=== PATIENT | male | born 1960 | race Caucasian/White ===

== ENCOUNTER 2020-07-23 10:27 | Outpatient (CLI) | payer OTHER, SELFPAY ==
--- NOTE | 2020-07-23 11:00 | NEURO_ITS ---
Impression: # Complains of numbness of hands. # Evolving Carpal Tunnel Syndrome. # No ulnar neuropathy. # Normal needle/EMG exam. Nerve Conduction Studies Anti Sensory Summary Table Stim Site NR Peak (ms) P-T Amp (?V) Site1 Site2 Delta-P (ms) Dist (cm) Stoney (m/s) Left Median Anti Sensory (2-3nd Digit) Wrist 3.0 52.1 Wrist 2-3nd Digit 3.0 14.0 47 Wrist 2.9 31.7 Wrist 2-3nd Digit 3.0 14.0 47 Right Median Anti Sensory (2-3nd Digit) Wrist 2.9 45.9 Wrist 2-3nd Digit 2.9 14.0 48 Wrist 3.0 40.2 Wrist 2-3nd Digit 2.9 14.0 48 Left Radial Anti Sensory (Base 1st Digit) Wrist 1.7 10.5 Wrist Base 1st Digit 1.7 0.0 Right Radial Anti Sensory (Base 1st Digit) Wrist 2.5 15.8 Wrist Base 1st Digit 2.5 0.0 Left Ulnar Anti Sensory (5th Digit) Wrist 2.7 59.3 Wrist 5th Digit 2.7 14.0 52 Right Ulnar Anti Sensory (5th Digit) Wrist 2.4 44.3 Wrist 5th Digit 2.4 14.0 58 Motor Summary Table Stim Site NR Onset (ms) O-P Amp (mV) Site1 Site2 Delta-0 (ms) Dist (cm) Stoney (m/s) Left Median Motor (Abd Poll Brev) Wrist 3.8 3.6 Elbow Wrist 5.4 31.0 57 Elbow 9.2 4.4 Right Median Motor (Abd Poll Brev) Wrist 3.6 3.9 Elbow Wrist 5.2 30.0 58 Elbow 8.8 4.6 Left Ulnar Motor (Abd Dig Minimi) Wrist 2.7 6.7 A Elbow Wrist 5.3 32.0 60 A Elbow 8.0 5.0 Right Ulnar Motor (Abd Dig Minimi) Wrist 2.7 7.2 A Elbow Wrist 5.5 31.0 56 A Elbow 8.2 5.6 F Wave Studies NR F-Lat (ms) L-R F-Lat (ms) Left Median (Mrkrs) (Abd Poll Brev) 29.49 0.06 Right Median (Mrkrs) (Abd Poll Brev) 29.55 0.06 Left Ulnar (Mrkrs) (Abd Dig Min) 30.04 0.27 Right Ulnar (Mrkrs) (Abd Dig Min) 30.31 0.27 EMG Side Muscle Nerve Root Ins Act Fibs Amp Dur Recrt Comment Right 1stDorInt Ulnar C8-T1 Nml Nml Nml Nml Nml Right Ext Indicis Radial (Post Int) C7-8 Nml Nml Nml Nml Nml Right Ext Digitorum Radial (Post Int) C7-8 Nml Nml Nml Nml Nml Right BrachioRad Radial C5-6 Nml Nml Nml Nml Nml Right PronatorTeres Median C6-7 Nml Nml Nml Nml Nml Right Abd Poll Brev Median C8-T1 Nml Nml Nml Nml Nml Left 1stDorInt Ulnar C8-T1 Nml Nml Nml Nml Nml Left Ext Indicis Radial (Post Int) C7-8 Nml Nml Nml Nml Nml Left Ext Digitorum Radial (Post Int) C7-8 Nml Nml Nml Nml Nml Left BrachioRad Radial C5-6 Nml Nml Nml Nml Nml Left PronatorTeres Median C6-7 Nml Nml Nml Nml Nml Left Abd Poll Brev Median C8-T1 Nml Nml Nml Nml Nml MTDD
== END 2020-07-23 10:28 | disposition home or self-care (01) ==
LOC: ANHNEURO 10:31
PROVIDERS: PCP Internal Medicine; Visit Provider Internal Medicine
DX: G56.03 Carpal tunnel syndrome, bilateral upper limbs (principal)
CPT/HCPCS: 95886; 95911

== ENCOUNTER 2022-11-11 14:20 | Emergency (ER) | payer OTHER, SELFPAY ==
--- NOTE | ~2022-11-11 | CT_ITS ---
EXAMINATION: CT brain wo con INDICATION: Headache COMPARISON: None TECHNIQUE: Standard unenhanced head CT. The dose-length product (DLP) was 681.00 mGy-cm. The mA was a djusted according to patient size. Iterative reconstruction technique was employed. FINDINGS: No acute intraparenchymal hemorrhage. No evidence of mass lesion. No evidence of acute infa rction. There is mild periventricular and subcortical hypodensity probably related to small vessel is chemic disease. There is mild prominence of the sulci and ventricles related to cerebral atrophy. Int racranial calcified cerebral atherosclerosis is noted. No extra-axial collections. No mass effect or midline shift. The orbits and soft tissues are unremarkable. A right mastoid effusion is noted. IMPRESSION: 1. No acute intracranial abnormality. 2. Age related findings. Reviewed, dictated and finalized at location F.
--- NOTE | ~2022-11-11 | XR_ITS ---
XR chest 2V DATE: 11/11/2022 14:56 INDICATION: Shortness of breath for 2 days. Weakness. TECHNIQUE: PA and lateral views COMPARISON: None FINDINGS: Normal heart size. Left-sided dual-lead pacemaker with leads overlying right atrium and rig ht ventricle. No hilar or mediastinal enlargement. No pulmonary infiltrate or consolidation, pleural effusion or pulmonary vascular congestion or pneumothorax. Diffuse idiopathic skeletal hyperostosis of the thoracic spine and prominent degenerative disc diseas e in the lower cervical spine. IMPRESSION: No active cardiopulmonary disease Reviewed, dictated and finalized at location A.
[2022-11-11 14:30] VITALS: BP 132/68; PULSE 73; RESP 16; TEMP 36.3; O2SAT 100
[2022-11-11 14:53] LABS: Basophils Percent Auto 0.4 % (0.2-1.2); Eosinophils Absolute Auto 0.1 K/mm3 (0-0.3); Eosinophils Percent Auto 1.2 % (0-4.4); Hematocrit 38.9 % (42.0-52.0); Hemoglobin 12.7 g/dL (14.0-18.0); Immature Granulocyte Absolute 0.02 K/mm3 (0.00-0.031); Immature Granulocyte Percent A 0.4 % (0-0.5); Lymphocytes Absolute Auto 0.94 K/mm3 (0.9-3.2); Lymphocytes Percent Auto 19.3 % (18.3-44.2); Mean Corpuscular HGB Conc 32.6 g/dl (32-36); Mean Corpuscular Volume 94.9 fl (80-100); Mean Platelet Volume 9.7 fl (7.4-10.4); Monocytes Absolute Auto 0.3 K/mm3 (0.1-0.6); Monocytes Percent Auto 5.8 % (2.6-8.5); Neutrophils Absolute Auto 3.5 K/mm3 (1.3-6.7); Neutrophils Percent Auto 72.9 % (45.5-73.1); Platelet Count Result 155 k/mm3 (150-375); Red Cell Distribution Width 14.2 % (11.5-14.5); White Blood Count 4.9 K/mm3 (4.5-10.0)
[2022-11-11 15:03] LABS: Alanine Aminotransferase 22 U/L (6-50); Albumin Level 4.1 g/dL (3.5-5.1); Alkaline Phosphatase 90 U/L (38-126); Anion Gap 4 mmol/L (8-16); Aspartate Amino Transferase 30 U/L (17-59); Bilirubin,Total 0.7 mg/dL (0.2-1.3); Blood Urea Nitrogen 23 mg/dL (9-20); Calcium 8.8 mg/dL (8.4-10.2); Carbon Dioxide 30 mmol/L (22-30); Chloride 109 mmol/L (98-107); Estimated CRCL calculation 59 ml/min; Estimated Glomerular Filt Rate 56; Glucose 81 mg/dL (65-110); Potassium 4.1 mmol/L (3.4-5.0); Sodium 143 mmol/L (137-145)
[2022-11-11 17:31] VITALS: BP 132/68; PULSE 73; RESP 16; O2SAT 97
[2022-11-11 17:45] LABS: Appearance Urine Clear (Clear); Bilirubin Urine Negative (Negative); Blood Urine Negative (Negative); Color Urine Yellow (Yellow); Glucose Urine UA Negative (Negative); Ketones Urine Trace mg/dL (Negative); Leukocyte Esterase Ur Negative LEU/UL (Negative); Nitrate Urine Negative (Negative); Protein Urine Negative (Negative); Specific Grav Ur 1.028 (1.001-1.035); pH Urine 5.5 (5.0-9.0)
[2022-11-11 17:46] LABS: Add Urine Microscopic? NO
[2022-11-11 17:54] VITALS: BP 124/77; PULSE 68; RESP 15; O2SAT 100
--- NOTE | 2022-11-11 18:41 | ED.GENADULT ---
HPI - General Adult General Chief complaint: Unspecified Stated complaint: incontinence, 30lb weight loss in 1 month Time Seen by Provider: 11/11/22 18:17 History of Present Illness HPI narrative: 62-year-old male with a history of dementia, GERD, hypertension reports for evaluation with his brother and [id number] at bedside for evaluation for dementia, fecal and urinary incontinence. The brother and [id number] provide the following history. The patient was diagnosed with dementia a couple of years ago, however over the past 6 months to 1 year the patient's dementia has progressively worsened. Over the past few weeks to months, the patient has developed urinary fecal incontinence which the family believes was only happening at night, however they did witness the patient have an episode of incontinence while awake during the day yesterday. The patient is currently being worked up outpatient for dementia by his PCP and is scheduled to have a CTA next week. Family states they contacted the PCP office advised the patient to come to the emergency department for further evaluation today given the episode of incontinence while awake. Family also states that the patient has lost 30 pounds in the past month. The patient lives at home by himself and the family checks on him daily. They state that they plan to stay with the patient until they are able to place him in a assisted living or alf facility. Family reports his normal mental status is ANO x1-2. The patient states he is feeling fine . He denies headache, vision changes, recent fall or injury, neck pain, fever, chest pain or shortness of breath, cough or congestion, abdominal pain, dysuria or hematuria, back pain, focal numbness or weakness, IVDU, use of steroids or immunosuppressants. Family denies recent medication changes other than addition of memantine for the past week. Related Data Allergies Allergy/AdvReac Type Severity Reaction Status Date / Time No Known Allergies Allergy Verified 11/11/22 18:04 Review of Systems Review of Systems: CONSTITUTIONAL: Denies fever, chills EYES: Denies visual changes, redness, or discharge. ENT: Denies rhinorrhea, congestion, sore throat, or otalgia. CARDIOVASCULAR: Denies chest pain, palpitations, or edema. RESPIRATORY: Denies cough or dyspnea. GASTROINTESTINAL: Denies abdominal pain, nausea, vomiting, or diarrhea. GENITOURINARY: See HPI SKIN: Denies rash or itching. MUSCULOSKELETAL: Denies back pain, joint pain, or myalgia. NEUROLOGIC: Denies headache, numbness, dizziness, or weakness. PSYCHIATRIC: Denies anxiety or depression. Exam Narrative: GENERAL: Well-appearing, in no acute distress. Patient resting comfortably in exam bed. He is pleasant and conversational. HEAD: Normocephalic EYES: PERRLA, EOMI ENT: Nares clear. Mucous membranes moist. Oropharynx without tonsillar hypertrophy exudate or other lesions. NECK: Supple. No nuchal rigidity. CHEST: No respiratory distress. Clear to auscultation, no adventitious breath sounds. HEART: Regular rate and rhythm. No murmur heard. Normal peripheral pulses. ABDOMEN: Soft, nontender, normal active bowel sounds. Rectal exam without melena or hematochezia, there is good rectal tone. : No lesions, erythema or edema to scrotum or penis. No crepitus to perineum. EXTREMITIES: Normal range of motion. No edema. SKIN: Warm, dry, no rash. NEURO: No focal deficits. Alert and oriented x1. Cranial nerves II through XII intact. Strength 5/5 in BUE and BLE. Sensation intact throughout. Normal [id number]. No pronator drift. Patient ambulatory without ataxia. PSYCH: Normal mood and affect. Course Vital Signs Vital signs: Vital Signs Temperature 97.4 F L 11/11/22 14:30 Pulse Rate 73 11/11/22 14:30 Respiratory Rate 16 11/11/22 14:30 Blood Pressure 132/68 11/11/22 14:30 Pulse Oximetry 100 11/11/22 14:30 Oxygen Delivery Room Air 11/11/22 14:30 Temperatu
[2022-11-11] MEDS: SODIUM CHLORIDE 0.9% IV 1,000 ML 999 ML IV CONT (19:07)
--- NOTE | 2022-11-11 19:07 | PC.NURSE ---
Pt to CT scan via stretcher at this time, fluids infusing.
[2022-11-11 19:58] LABS: Amphetamine Screen Urine Negative (Negative); Barbiturate Screen Urine Negative (Negative); Benzodiazepines Screen Urine Negative (Negative); Cannabinoid Screen Urine Negative (Negative); Cocaine Screen Urine Negative (Negative); Methadone Screen Urine Negative (Negative); Opiate Screen Urine Negative (Negative); Phencyclidine Screen Urine Negative (Negative)
[2022-11-11 20:13] VITALS: BP 141/83; PULSE 64; O2SAT 100
[2022-11-11 20:16] LABS: Acetaminophen < 10 ug/mL (10-30); Ammonia < 9 umol/L (9-30); Ethanol < 10 mg/dL (<10); Lactic Acid Reflex 0.9 mmol/L (0.7-2.0); Salicylate < 1.0 mg/dL (2-20)
[2022-11-11 20:28] LABS: Troponin I < 0.012 ng/mL (0.000-0.034)
[2022-11-11 21:07] LABS: Thyroid Stimulating Hormone Reflex 0.436 uIU/mL (0.465-4.68)
[2022-11-11 21:33] LABS: Free T4 Free Thyroxine Reflex 1.28 ng/dL (0.78-2.19)
[2022-11-11 22:12] LABS: Total Triiodothyronine (T3) 1.07 NG/ML (0.97-1.69)
[2022-11-11 22:44] VITALS: BP 136/82; PULSE 68; RESP 15; O2SAT 100
== END 2022-11-11 22:45 | disposition home or self-care (01) ==
PROVIDERS: Emergency Medicine; Emergency Provider Physician Assistant; PCP Internal Medicine
DX: R32 Unspecified urinary incontinence (principal); R15.9 Full incontinence of feces; F03.90 Unspecified dementia, unspecified severity, without behavioral disturbance, psychotic disturbance, mood disturbance, and anxiety
CPT/HCPCS: 36415; 70450; 71046; 80053; 80307; 81003; 82140; 83605; 84439; 84443; 84480; 84484; 85025; 96360; 96361; 99284; J7030

== ENCOUNTER 2022-12-03 11:39 | Emergency (ER) | payer OTHER, SELFPAY ==
--- NOTE | ~2022-12-03 | US_ITS ---
EXAMINATION: US venous doppler UE DATE: 12/03/2022 15:54 INDICATION: Left upper extremity swelling TECHNIQUE: Grayscale ultrasound images without and with compression and Doppler ultrasound images of the left upper extremity veins were obtained. COMPARISON: None. FINDINGS: The left internal jugular vein, subclavian vein, axillary vein, brachial veins, basilic vein, cephali c vein, radial vein, and ulnar vein are patent. IMPRESSION: 1. No evidence of deep venous thrombosis. Reviewed, dictated and finalized at location F.
--- NOTE | ~2022-12-03 | XR_ITS ---
XR wrist LT min 3V DATE: 12/03/2022 15:14 INDICATION: Left wrist pain TECHNIQUE: 4 views COMPARISON: None FINDINGS: There is severe joint space narrowing and there is spurring at the triscaphe joint. Mild osteoarthritis at the first carpometacarpal joint. Osteopenia. Minimal chondrocalcinosis is suggested at the triangular cartilage. No fracture or dislocation, periosteal reaction or bone destruction is detected. IMPRESSION: Osteopenia Osteoarthritis, particularly affecting the triscaphe joint Reviewed, dictated and finalized at location B.
--- NOTE | ~2022-12-03 | CT_ITS ---
EXAMINATION: CT UE LT wo con DATE: 12/03/2022 17:08 INDICATION: Left arm pain and swelling TECHNIQUE: High resolution computed tomography (CT) of the left arm from the shoulder through the bad[place] d was performed without intravenous contrast. Additional sagittal and coronal reconstructions were pe rformed. Automated exposure control and iterative reconstruction technique were employed. The dose-le ngth product was 1669.65 mGy-cm. COMPARISON: None FINDINGS: Normal alignment throughout the left upper extremity. No fracture. No cortical erosions or periosteal reaction. Polyarticular osteoarthritis, mild at the left acromioclavicular and glenohumeral and elbo w joints. Ossicle at the radial side of the elbow joint which could represent either degenerative loo se body or heterotopic ossicles related to chronic sprain of the lateral collateral ligament. Severe osteoarthritis at the triscaphe joint. Additional mild osteoarthritis at the distal radioulnar, wrist , triscaphe and multiple interphalangeal joints. Degenerative subarticular cystic change with thin sc lerotic margins at the proximal lunate. No erosions. No joint effusion at the left shoulder or elbow. Diffuse soft tissue swelling and subcutaneous edema throughout the distal left arm beginning just ab ove level of the elbow and extending through the hand. No abscess or evident soft tissue gas. IMPRESSION: 1. Nonspecific diffuse soft tissue swelling and subcutaneous edema of the left upper extremity at and distal to the left elbow. No abscess, joint effusions, soft tissue gas or acute osseous abnormality. 2. 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 Reviewed, dictated and finalized at location A. IMPRESSION: 1. Nonspecific diffuse soft tissue swelling and subcutaneous edema of the left upper extremity at and distal to the left elbow. No abscess, joint effusions, s oft tissue gas or acute osseous abnormality. 2. 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
--- NOTE | ~2022-12-03 | XR_ITS ---
EXAMINATION: XR elbow LT min 3V DATE: 12/03/2022 15:14 INDICATION: Left elbow pain TECHNIQUE: Anteroposterior, two oblique and lateral views of the left elbow were obtained. COMPARISON: None. FINDINGS: Alignment is normal. No definite fracture is identified. There is a tiny area of heterotopi c ossification projecting lateral to the lateral humeral condyle of unclear origin or significance, p ossibly degenerative. There is a questionable joint effusion although the lateral view is somewhat no nstandard. Moderate posterior soft tissue swelling is present. IMPRESSION: 1. Heterotopic ossification which could reflect degenerative change and possible joint effusion. Cons ider further evaluation with CT to evaluate for occult fracture. Reviewed, dictated and finalized at location F. IMPRESSION: 1. Heterotopic ossification which could reflect degenerative change and possibl e joint effusion. Consider further evaluation with CT to evaluate for occult fr acture.
[2022-12-03 11:42] VITALS: BP 142/82; PULSE 78; RESP 20; TEMP 36.4; O2SAT 100
--- NOTE | 2022-12-03 13:30 | PC.NURSE ---
pts condition unchanged. continue waiting edp evaluation. family at bedside.
--- NOTE | 2022-12-03 13:30 | PC.NURSE ---
pt sitting on stretcher with no distress noted multiple family members at bedside. continue waiting edp evaluation
--- NOTE | 2022-12-03 15:22 | PC.NURSE ---
pt to ultrasound via wheelchair
--- NOTE | 2022-12-03 16:37 | ED.GENADULT ---
HPI - General Adult General Chief complaint: Extremity Injury, Upper Stated complaint: left arm swelling Time Seen by Provider: 12/03/22 14:25 History of Present Illness HPI narrative: Roman Varner is a 62 y/o male with PMHx of dementia who his family helps care for him. Family states that pt has had swelling to his left upper arm that they first noticed 3 days ago, pt said it wasn't painful they thought maybe he slept on it wrong. Today he said it hurt a little and they brought him here to make sure he does not have a blood clot, he has hx of blood clots and is currently on Xarelto . Denies fever/chills/ ROM intact Related Data Home Medications Medication Instructions Recorded Confirmed atorvastatin 40 mg tablet 40 mg PO DAILY 12/03/22 cyanocobalamin (vitamin B-12) 1,000 mcg PO DAILY 12/03/22 1,000 mcg lozenges diltiazem HCl 180 mg 180 mg PO DAILY 12/03/22 capsule,extended release 24 hr, controlled rivaroxaban 20 mg tablet (Xarelto) 20 mg PO DAILY 12/03/22 Allergies Allergy/AdvReac Type Severity Reaction Status Date / Time No Known Allergies Allergy Verified 12/03/22 12:00 Review of Systems Review of Systems: CONSTITUTIONAL: Denies fever, chills, or sweats. EYES: Denies visual changes, redness, or discharge. ENT: Denies rhinorrhea, congestion, sore throat, or otalgia. CARDIOVASCULAR: Denies chest pain, palpitations, or edema. RESPIRATORY: Denies cough or dyspnea. GASTROINTESTINAL: Denies abdominal pain, nausea, vomiting, or diarrhea. GENITOURINARY: Denies dysuria or hematuria. SKIN: Denies rash or itching. MUSCULOSKELETAL: Denies back pain, joint pain, or myalgia. Complains of swelling to his left upper arm that started a few days ago, no known injury or trauma NEUROLOGIC: Denies headache, numbness, dizziness, or weakness. PSYCHIATRIC: Denies anxiety or depression. Course Vital Signs Vital signs: Vital Signs Temperature 36.4 C L 12/03/22 11:42 Pulse Rate 78 12/03/22 11:42 Respiratory Rate 20 12/03/22 11:42 Blood Pressure 142/82 H 12/03/22 11:42 Pulse Oximetry 100 12/03/22 11:42 Oxygen Delivery Room Air 12/03/22 11:42 Temperature 36.4 C L 12/03/22 11:42 Pulse Rate 78 12/03/22 11:42 Respiratory Rate 20 12/03/22 11:42 Blood Pressure 142/82 H 12/03/22 11:42 Pulse Oximetry 100 12/03/22 11:42 Oxygen Delivery Room Air 12/03/22 11:42 Medical Decision Making MDM Narrative Medical decision making narrative: On exam pt is noted to have pitting edema to his left upper extremity from the elbow down to his hand Skin warm/ color normal for ethnicity / no wounds, lesions, rash,/ No erythema/ no ecchymosis/ ROM to hand and elbow is intact without pain. NO pain or swelling to upper arm or shoulder Pulses strong and intact Normal cap refill No pain with movement or pain noted with palpation Patient and family are not aware of any known trauma/ injury Differential Diagnosis Differential Diagnosis: Concern for : acute fracture/ DVT/ tendonitis/ Medical Records Medical records reviewed: Yes I reviewed the external patient's medical records. Vital Signs Vital Signs: Vital Signs Temperature 36.4 C L 12/03/22 11:42 Pulse Rate 78 12/03/22 11:42 Respiratory Rate 20 12/03/22 11:42 Blood Pressure 142/82 H 12/03/22 11:42 Pulse Oximetry 100 12/03/22 11:42 Oxygen Delivery Room Air 12/03/22 11:42 Temperature 36.4 C L 12/03/22 11:42 Pulse Rate 78 12/03/22 11:42 Respiratory Rate 20 12/03/22 11:42 Blood Pressure 142/82 H 12/03/22 11:42 Pulse Oximetry 100 12/03/22 11:42 Oxygen Delivery Room Air 12/03/22 11:42 Vitals reviewed by me. Imaging Data My impression: Impressions Elbow X-Ray 12/03/22 15:21 IMPRESSION: 1. Heterotopic ossification which could reflect degenerative change and possible joint effusion. Consider further evaluation with CT to evaluate for occult fracture. Wrist X-Ray 12/03/22 15:22 IMPRESS
--- NOTE | 2022-12-03 16:40 | PC.NURSE ---
pt to ct via wheelchair
== END 2022-12-03 17:55 | disposition home or self-care (01) ==
PROVIDERS: Emergency Provider Nurse Practitioner Family; PCP Internal Medicine
DX: M79.89 Other specified soft tissue disorders (principal); M19.90 Unspecified osteoarthritis, unspecified site; F03.90 Unspecified dementia, unspecified severity, without behavioral disturbance, psychotic disturbance, mood disturbance, and anxiety; Z79.01 Long term (current) use of anticoagulants; Z86.718 Personal history of other venous thrombosis and embolism
CPT/HCPCS: 73080; 73110; 73200; 93971; 96372; 99284; J1100